=== PATIENT | female | born 1995 | race Hispanic/Latino ===

== ENCOUNTER 2016-07-04 10:27 | Emergency (ER) | payer OTHER ==
[2016-07-04 10:28] VITALS: BMI 23.1
[2016-07-04 11:14] VITALS: TEMP 98.3; O2SAT 100
[2016-07-04 12:18] LABS: URINE APPEARANCE CLEAR (CLEAR); URINE BILIRUBIN NEGATIVE (NEGATIVE); URINE BLOOD SMALL (NEGATIVE); URINE COLOR YELLOW (YELLOW); URINE GLUCOSE (UA) NEGATIVE (NEGATIVE); URINE KETONE NEGATIVE (NEGATIVE); URINE LEUKOCYTE ESTERASE NEGATIVE Leu/uL (NEGATIVE); URINE PROTEIN NEGATIVE mg/dL (<30 mg/dL); URINE UROBILINOGEN 0.2 E.U./dL (<1 E.U./dL)
[2016-07-04 12:23] LABS: URINE BACTERIA FEW (NEG); URINE EPITHELIAL CELLS 0 - 2 /hpf (0-5); URINE WBC 0 - 2 /hpf (0-6)
[2016-07-04 12:24] VITALS: RESP 18
--- NOTE | 2016-07-04 12:32 | CT ---
PROCEDURE: CT Abdomen and Pelvis without intravenous contrast HISTORY: RLQ abdominal pain COMPARISON: None. TECHNIQUE: Without contrast. Contrast Dose: Radiation dose: Total exam DLP = 467 mGy-cm. This CT exam was performed using one or more of the following dose reduction techniques: Automated exposure control, adjustment of the mA and/or kV according to patient size, and/or use of iterative reconstruction technique. FINDINGS: LOWER THORAX: Unremarkable. LIVER: Unremarkable. No gross lesion or ductal dilatation. GALLBLADDER AND BILE DUCTS: Unremarkable. PANCREAS: Unremarkable. No gross lesion or ductal dilatation. SPLEEN: Unremarkable. ADRENALS: Unremarkable. No mass. KIDNEYS AND URETERS: Unremarkable. No hydronephrosis. No solid mass. VASCULATURE: Unremarkable. No aortic aneurysm. BOWEL: Unremarkable. No obstruction. No gross mural thickening. APPENDIX: The appendix is not well visualized. There is no evidence of appendicitis. PERITONEUM: There is a small amount of fluid in the cul-de-sac and adjacent to the cecum. This is probably from ovarian cyst rupture. LYMPH NODES: Unremarkable. No enlarged lymph nodes. BLADDER: Unremarkable. REPRODUCTIVE: Right-sided ovarian cyst. BONES: No acute fracture. OTHER FINDINGS: Findings were discussed with Ellie Jacobs in the emergency room at 12:30 p.m.. The patient does not have a fever or white count. Clinical presentation is in agreement with ovarian cyst rupture IMPRESSION: Small amount of fluid in the cul-de-sac and right pericolic gutter with right ovarian cyst. Findings most consistent with cyst rupture. Appendix is not visualized but there is no obvious appendicitis
[2016-07-04 13:25] VITALS: BP 124/68; PULSE 65
[2016-07-04 13:29] LABS: ADD MANUAL DIFF? NO
--- NOTE | 2016-07-04 13:40 | ED PDOC ---
Arrival/HPI - General Chief Complaint: Abdominal Pain Time Seen by Provider: 07/04/16 11:39 Historian: Patient - History of Present Illness Narrative History of Present Illness (Text): 07/04/16 13:38 20yo female present with her mother by the bedside with complaint of RLQ abdominal pain x 4days. She denies nausea, vomiting, diarrhea, constipation, fever, chills, change in appetite, melena, hematemesis, urinary symptoms, any other complaint. Past Medical History - Provider Review Nursing Documentation Reviewed: Yes - Past History Past History: No Previous - Tetanus Immunization Tetanus Immunization: Up to Date - Psychiatric Hx Depression: No Hx Emotional Abuse: No Hx Physical Abuse: No Hx Substance Use: No - Past Surgical History Past Surgical History: No Previous - Anesthesia Hx Anesthesia: No - Suicidal Assessment Feels Threatened In Home Enviroment: No Family/Social History - Physician Review Nursing Documentation Reviewed: Yes Family/Social History: Unknown Family HX Smoking Status: Never Smoked Hx Alcohol Use: No Hx Substance Use: No Hx Substance Use Treatment: No Allergies/Home Meds Allergies/Adverse Reactions: Allergies No Known Allergies Allergy (Verified 07/04/16 11:11) Review of Systems - Physician Review All systems were reviewed & negative as marked: Yes - Review of Systems Constitutional: Normal Eyes: Normal ENT: Normal Respiratory: Normal Cardiovascular: Normal Gastrointestinal: Abdominal Pain. absent: Constipation, Diarrhea, Nausea, Vomiting, Appetite Changes, Hematochezia, Hematemesis Genitourinary Female: Normal Musculoskeletal: Normal Skin: Normal Neurological: Normal Endocrine: Normal Hemo/Lymphatic: Normal Psychiatric: Normal Physical Exam Vital Signs Reviewed: Yes Vital Signs Temp Pulse Resp BP Pulse Ox 07/04/16 13:24 65 18 124/68 100 07/04/16 12:23 68 18 126/71 100 07/04/16 11:13 98.3 F 72 17 129/77 100 Temperature: Afebrile Blood Pressure: Normal Pulse: Regular Respiratory Rate: Normal Appearance: Positive for: Well-Appearing, Non-Toxic, Comfortable Pain Distress: None Mental Status: Positive for: Alert and Oriented X 3 - Systems Exam Head: Present: Atraumatic, Normocephalic Pupils: Present: PERRL Extroacular Muscles: Present: EOMI Conjunctiva: Present: Normal Mouth: Present: Moist Mucous Membranes Neck: Present: Normal Range of Motion Respiratory/Chest: Present: Clear to Auscultation, Good Air Exchange. No: Respiratory Distress, Accessory Muscle Use Cardiovascular: Present: Regular Rate and Rhythm, Normal S1, S2. No: Murmurs Abdomen: Present: Tenderness (Mild RLQ tenderness with deep palpation), Normal Bowel Sounds, Other (Soft). No: Distention, Peritoneal Signs, Rebound, Guarding , McBurney's Point Tender, Rovsing's Sign Present Back: Present: Normal Inspection Upper Extremity: Present: Normal Inspection. No: Cyanosis, Edema Lower Extremity: Present: Normal Inspection. No: Edema Neurological: Present: GCS=15, CN II-XII Intact, Speech Normal Skin: Present: Warm, Dry, Normal Color. No: Rashes Psychiatric: Present: Alert, Oriented x 3, Normal Insight, Normal Concentration Medical Decision Making ED Course and Treatment: 07/04/16 14:39 Pt in ED for stated history. She was afebrile, hemodynamically stable and in no distress. Lab was unremarkable. Abdominal CT IMPRESSION: Small amount of fluid in the cul-de-sac and right pericolic gutter with right ovarian cyst. Findings most consistent with cyst rupture. Appendix is not visualized but there is no obvious appendicitis Case was also DW Dr. Baez while she was in ED. Plan was to DC pt home and have her f/u with Dr. Baez/MANAGER LEGAL Result and plan was DW the pt and her mother. she was DC home with a rx of Iburpofen. TRT ED for any new or worsening symptoms - Lab Interpretations Lab Results: 07/04/16 13:00 07/04/16 13:00 Lab Results 07/04/16 13:00: Sodium 140, Potassium 4.3, Chloride 103, Carbon Dioxide 28, Anion Gap 13, BUN 12, Creatinine 0.7, Est GFR ( Amer) > 60, Est GFR (Non- Af Amer) > 60, Random Glucose 92, Calcium 9.7, Total Bilirubin 0.6, AST 21, ALT 30, Alkaline Phosphatase 65, Total Protein 8.3, Albumin 4.6, Globulin 3.7, Albumin/Globulin Ratio 1.2 07/04/16 13:00: WBC 7.9, RBC 4.62, Hgb 12.9, Hct 38.8, MCV 84.0, MCH 27.9, MCHC 33.2, RDW 12.3, Plt Count 237, MPV 10.8, Gran % 71.2 H, Lymph % (Auto) 23.4, [place] % (Auto) 3.7, Eos % (Auto) 1.1 L, Baso % (Auto) 0.6, Gran # 5.61, Lymph # 1.9, [place] # 0.3, Eos # 0.1, Baso # 0.05 07/04/16 12:00: Urine Color Yellow, Urine Appearance Clear, Urine pH 6.0, Ur Specific [place] <= 1.005, Urine Protein Negative, Urine Glucose (UA) Negative, Urine Ketones Negative, Urine Blood Small H, Urine Nitrate Negative, Urine Bilirubin Negative, Urine Urobilinogen 0.2, Ur Leukocyte Esterase Negative, Urine RBC 1 - 3, Urine WBC 0 - 2, Ur Epithelial Cells 0 - 2, Urine Bacteria Few - RAD Interpretation Radiology Orders: 07/04/16 11:39 ABD & PELVIS W/O PO OR IV CONT [CT] Stat - Medication Orders Current Medication Orders: Discontinued Medications Ibuprofen (Motrin Tab) 600 mg PO STAT STA Stop: 07/04/16 13:56 Last Admin: 07/04/16 14:14 Dose: 600 mg Disposition/Present on Arrival - Present on Arrival Any Indicators Present on Arrival: No History of DVT/PE: No History of Uncontrolled Diabetes: No Urinary Catheter: No History of Decub. Ulcer: No History Surgical Site Infection Following: None - Disposition Have Diagnosis and Disposition been Completed?: Yes Diagnosis: Abdominal pain Disposition: HOME/ ROUTINE Disposition Time: 13:55 Patient Plan: Discharge Patient Problems: Current Active Problems Problem Status Onset Abdominal pain Acute Condition: STABLE Discharge Instructions (ExitCare): Abdominal Pain (ED) Additional Instructions: Follow up with your Doctor/MANAGER LEGAL Return to ED for any new or worsening symptoms Prescriptions: Ibuprofen [Motrin Tab] 600 mg PO Q6 #20 tab Referrals: Anneliese Baez MD [Primary Care Provider] - Follow up with primary Forms: SCHOOL NOTE
[2016-07-04 13:45] LABS: ALB/GLOB RATIO 1.2 (1.1-1.8); ALKALINE PHOSPHATASE 65 U/L (38-133); ALT/SGPT 30 U/L (7-56); AST/SGOT 21 U/L (15-39); BILIRUBIN,TOTAL 0.6 mg/dL (0.2-1.3); BLOOD UREA NITROGEN 12 mg/dL (7-21); CALCIUM 9.7 mg/dL (8.4-10.5); CARBON DIOXIDE 28 mmol/L (21-33); CHLORIDE 103 mmol/L (98-107); GFR AFRICAN-AMERICAN > 60; GLUCOSE,RANDOM 92 mg/dL (70-110); POTASSIUM 4.3 mmol/L (3.6-5.0); SODIUM 140 mmol/L (132-148); TOTAL PROTEIN 8.3 g/dL (5.8-8.3)
[2016-07-04 13:48] LABS: BASO # 0.05 K/mm3 (0.0-2.0); BASO % 0.6 % (0.0-3.0); EOS # 0.1 (0.0-0.7); EOS % 1.1 % (1.5-5.0); GRAN # 5.61 (1.4-6.5); GRAN % 71.2 % (50.0-68.0); HEMATOCRIT 38.8 % (36.0-48.0); LYMPH # 1.9 (1.2-3.4); LYMPH % 23.4 % (22.0-35.0); MEAN CORPUSCULAR HEMOGLOBIN 27.9 pg (25.0-35.0); MEAN CORPUSCULAR HGB CONC 33.2 g/dl (31.0-37.0); MEAN PLATELET VOLUME 10.8 fl (7.0-11.0); MONO # 0.3 (0.1-0.6); MONO % 3.7 % (1.0-6.0); PLATELET COUNT 237 10^3/uL (120.0-450.0); RED CELL DISTRIBUTION WIDTH 12.3 % (11.5-14.5); WHITE BLOOD COUNT 7.9 10^3/ul (4.5-11.0)
== END 2016-07-04 14:45 | disposition home or self-care (01) ==
LOC: ED 10:27
DX: R10.9 Unspecified abdominal pain (principal)

== ENCOUNTER 2017-06-27 12:27 | Emergency (ER) | payer OTHER ==
[2017-06-27 12:28] VITALS: BMI 23.1
[2017-06-27 12:47] VITALS: TEMP 98.1
[2017-06-27 13:38] VITALS: O2SAT 100
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
[2017-06-27 15:09] VITALS: BP 129/80; PULSE 66; RESP 17
== END 2017-06-27 14:55 | disposition home or self-care (01) ==
LOC: ED 12:27
DX: M25.511 Pain in right shoulder (principal)